=== PATIENT | female | born 1970 | race American Indian/Alaskan Native ===

== ENCOUNTER 2017-04-18 15:18 | Outpatient (CLI) | payer MEDICARE ==
[2017-04-18] MEDS ORDERED: LACTATED RINGERS 500 ML IV ONE (16:00)
[2017-04-18 16:04] LABS: Hemoglobin 11.6 gm/dl (10.1-14.3); Mean Corpuscular HGB Conc 32 % (30-34); Mean Corpuscular Hemoglobin 30 pg (28-32); Mean Corpuscular Volume 93 fl (79-97); Platelet Count 317 K/mm3 (140-440); Red Blood Count 3.87 M/mm3 (3.65-5.03); Red Cell Distribution Width 14.4 % (13.2-15.2); White Blood Count 15.3 K/mm3 (4.5-11.0)
[2017-04-18 16:15] LABS: Bilirubin,Urine NEG (Negative); Blood,Urine NEG (Negative); Ketones,Urine TR mg/dL (Negative); Leukocyte Esterase,Urine NEG (Negative); Mucus,Urine FEW /HPF; Nitrite,Urine NEG (Negative)
[2017-04-18 16:32] LABS: Alanine Aminotransferase 9 units/L (7-56); Lactate Dehydrogenase 213 units/L (91-180); Uric Acid 4.2 mg/dL (3.5-7.6)
[2017-04-18 17:43] VITALS: BP 144/81
== END 2017-04-18 18:07 | disposition home or self-care (01) ==
LOC: TRG 15:18
PROVIDERS: ATTEND Obstetrics & Gynecology
DX: O99.333 Smoking (tobacco) complicating pregnancy, third trimester (principal); O47.03 False labor before 37 completed weeks of gestation, third trimester; Z3A.36 36 weeks gestation of pregnancy
CPT/HCPCS: 36415; 59025; 81001; 82565; 83615; 84450; 84460; 84550; 85027

== ENCOUNTER 2017-04-29 22:16 | Inpatient (IN) | payer MEDICARE ==
[2017-04-30] MEDS ORDERED: PITOCin/NS 20 UNIT/1000ML DRIP 0 MILLIUNITS/0 ML BAG IV ONE (00:11)
[2017-04-30 00:21] LABS: Hemoglobin 10.5 gm/dl (10.1-14.3); Mean Corpuscular HGB Conc 32 % (30-34); Mean Corpuscular Hemoglobin 29 pg (28-32); Mean Corpuscular Volume 92 fl (79-97); Platelet Count 299 K/mm3 (140-440); Red Blood Count 3.58 M/mm3 (3.65-5.03); Red Cell Distribution Width 14.6 % (13.2-15.2); White Blood Count 16.3 K/mm3 (4.5-11.0)
[2017-04-30] MEDS ORDERED: STADOL IV PRN (04:34)
[2017-04-30] MEDS ORDERED: APRESOLINE IV PRN (04:35)
[2017-04-30] MEDS: APRESOLINE IV PRN ×2 (04:47→23:38)
[2017-04-30] MEDS ORDERED: LACTATED RINGERS 1,000 ML IV SCH ×2 (05:00→09:00)
[2017-04-30] MEDS ORDERED: BRETHINE IVP PRN (08:15)
[2017-04-30] MEDS ORDERED: BRETHINE SUB-Q PRN (08:15)
[2017-04-30] MEDS ORDERED: MINERAL OIL PO PRN (08:15)
[2017-04-30] MEDS ORDERED: XYLOCAINE 2% INFILTRATI ONE (08:15)
[2017-04-30] MEDS ORDERED: ePHEDrine SULFATE IV PRN ×2 (08:15→09:36)
[2017-04-30] MEDS: PITOCin/NS 30 UNIT/500ML 30 UNITS/500 ML BAG IV SCH ×2 (08:30→19:31)
--- NOTE | 2017-04-30 08:45 | History and Physical Report ---
History of Present Illness Date of examination: 04/30/17 Date of admission: 04/29/17 22:46 History of present illness: 46 yo first trimester U/S EDC 05/14/17 @ 38 weeks gestation presented last night to unit with c/o SROM at 2100 clear fluid. Denies VB, reports good FM. First trimester entry into care at 8 weeks gestation. course complicated by Chronic hypertension with Aldomet 250mg QD and APA comang't. Limited care in first trimester, missed 10 weeks of care. Limited anatomy scan with NL repeat U/S. Also had elevated GCT of 179, declinced 3hr GTT , sent for hgA1C, fasting and 2hr PP glucose, results not currently available at time of entry. Also treated for anemia with iron BID and Trichomonas with Rx 04/2017. She is GBS negative. Past History Past Medical History: hypertension, other (adenomyosis and leiomyoma) Past Surgical History: no surgical history [employer] History: trichomonas Family/Genetic History: diabetes, hypertension Social history: - Obstetrical History Expected Date of Delivery: 05/14/17 Actual Gestation: 38 Week(s) 0 Day(s) : 6 Para: 3 Hx # Term Pregnancies: 3 Number of Pregnancies: 0 Spontaneous Abortions: 2 Induced : 0 Number of Living Children: 3 Medications and Allergies Allergies Allergy/AdvReac Type Severity Reaction Status Date / Time No Known Allergies Allergy Verified 01/11/14 05:43 Home Medications Medication Instructions Recorded Confirmed Last Taken Type Lactulose [Cephulac] 20 gm PO BID #300 ml 01/11/14 Unknown Rx Starch 51%(Nf) [Anusol] 1 each CO QID PRN #30 supp.rect 01/11/14 Unknown Rx amLODIPine [Norvasc] 5 mg PO DAILY #30 tab 02/15/16 Unknown Rx traMADol [Ultram 50 MG tab] 50 mg PO Q6HR PRN #10 tablet 02/15/16 Unknown Rx Active Meds: Active Medications Butorphanol Tartrate (Stadol) 2 mg IV Q2H PRN PRN Reason: Labor Pain Hydralazine HCl (Apresoline) 10 mg IV Q30MIN PRN PRN Reason: Hypertension Last Admin: 04/30/17 04:47 Dose: 10 mg Lactated Ringer's (Lactated Ringers) 1,000 mls @ 125 mls/hr IV DIRECT JAIMEE Oxytocin/Sodium Chloride (Pitocin/Ns 20 Unit/1000ml Drip) 20 units in 1,000 mls @ 125 mls/hr IV DIRECT JAIMEE Oxytocin/Sodium Chloride (Pitocin/Ns 30 Unit/500ml) 30 units in 500 mls @ 4 mls /hr IV TITR JAIMEE PRN Reason: Protocol Oxytocin/Sodium Chloride (Pitocin/Ns 30 Unit/500ml) 30 units in 500 mls @ 1 mls /hr IV TITR JAIMEE; 1 MILLIUNITS/MIN PRN Reason: Protocol Methyldopa (Aldomet) 250 mg PO QDAY JAIMEE Mineral Oil (Mineral Oil) 30 ml PO QHS PRN PRN Reason: Constipation Review of Systems All systems: negative Genitourinary: normal appearance, leakage of fluid, contractions, no vaginal bleeding - Vital Signs Vital signs: Vital Signs Pulse Pulse Ox 72 99 04/29/17 22:48 04/29/17 22:48 Temp Pulse Resp BP Pulse Ox 98.3 F 97 H 16 145/87 81 L 04/30/17 08:00 04/30/17 08:31 04/30/17 08:00 04/30/17 08:31 04/30/17 07:45 - Physical Exam Lungs: Positive: Normal air movement Abdomen: Positive: normal appearance Anus/Rectum: Positive: normal perianal skin - Obstetrical FHR: category 1 Uterine Contraction Monitor Mode: External Cervical Dilatation: 3 Cervical Effacement Percentage: 50 station: -3 Uterine Contraction Pattern: Irregular Uterine Tone Measurement Phase: Resting Uterine Contraction Intensity: Mild Results Result Diagrams: 04/30/17 09:27 04/30/17 14:16 Abnormal lab results 04/29/17 Range/Units 00:00 WBC 16.3 H (4.5-11.0) K/mm3 RBC 3.58 L (3.65-5.03) M/mm3 All other labs normal. Assessment and Plan A: IUP at 38.0 weeks Chronic Hypertension Spontaneous Rupture of Membranes Advanced maternal age Anemia Glucose Intolerance Uterine Fibroids EFW: 7.5lbs P: advised of patient Active hina't Pitocin Limited vaginal exams Monitor BP
[2017-04-30] MEDS ORDERED: PITOCin/NS 30 UNIT/500ML 30 UNITS/500 ML BAG IV SCH (09:00)
[2017-04-30] MEDS ORDERED: PITOCin/NS 20 UNIT/1000ML DRIP 20 UNITS/1,000 ML BAG IV SCH (09:00)
[2017-04-30] MEDS ORDERED: fentaNYL-BUPIV 2 MCG/ML-0.125% 200 MCG/100 ML BAG EPIDURAL ONE (09:32)
[2017-04-30] MEDS ORDERED: NARCAN 2 MG/2 ML IV PRN (09:36)
--- NOTE | 2017-04-30 09:36 | Anesthesia Consultation ---
Anesthesia Consult and Med Hx Date of service: 04/30/17 - Airway Anesthetic Teeth Evaluation: Good ROM Head & Neck: Adequate Mental/Hyoid Distance: Adequate Mallampati Class: Class II Intubation Access Assessment: Probably Good - Pre-Operative Health Status ASA Pre-Surgery Classification: ASA2 Proposed Anesthetic Plan: Epidural, Spinal - Pulmonary Hx Asthma: No COPD: No Hx Pneumonia: No - Cardiovascular System Hx Hypertension: Yes - Central Nervous System Hx Seizures: No Hx Psychiatric Problems: No - Endocrine Hx Renal Disease: No Hx End Stage Renal Disease: No Hx Hypothyroidism: No Hx Hyperthyroidism: No - Hematic Hx Anemia: No Hx Sickle Cell Disease: No - Other Systems Hx Alcohol Use: No
[2017-04-30 09:44] LABS: Hematocrit 34.1 % (30.3-42.9); Hemoglobin 11.2 gm/dl (10.1-14.3)
[2017-04-30] MEDS ORDERED: ALDOMET PO SCH (10:00)
[2017-04-30] MEDS: fentaNYL-BUPIV 2 MCG/ML-0.125% 200 MCG/100 ML BAG EPIDURAL SCH ×2 (10:10→18:56)
--- NOTE | 2017-04-30 13:09 | Progress Note ---
Assessment and Plan A: IUP at 38 weeks SROM-clear PROM @ 1500 Epidural Insitu P: Active Govind't with Pitocin (currently at 24mu) Antibiotics @ 1500 Subjective - Subjective Date of service: 04/30/17 Interval history: 46 yo first trimester U/S EDC 05/14/17 @ 38 weeks gestation presented last night to unit with c/o SROM at 2100 clear fluid. Denies VB, reports good FM. First trimester entry into care at 8 weeks gestation. course complicated by Chronic hypertension with Aldomet 250mg QD and APA comang't. Limited care in first trimester, missed 10 weeks of care. Limited anatomy scan with NL repeat U/S. Also had elevated GCT of 179, declinced 3hr GTT , sent for hgA1C, fasting and 2hr PP glucose, results not currently available at time of entry. Also treated for anemia with iron BID and Trichomonas with Rx 04/2017. She is GBS negative. Patient reports: new complaints, loss of fluid, movement normal, contractions, no vaginal bleeding Objective - Vital Signs Vital Signs: Vital Signs - 12hr 04/30/17 04/30/17 04/30/17 01:06 01:11 01:16 Temperature Pulse Rate 101 H 104 H 97 H Respiratory Rate Blood Pressure O2 Sat by Pulse 97 97 97 Oximetry 04/30/17 04/30/17 04/30/17 01:21 01:26 01:31 Temperature Pulse Rate 101 H 105 H 105 H Respiratory Rate Blood Pressure O2 Sat by Pulse 97 96 97 Oximetry 04/30/17 04/30/17 04/30/17 01:36 01:41 01:46 Temperature Pulse Rate 96 H 85 88 Respiratory Rate Blood Pressure O2 Sat by Pulse 95 96 97 Oximetry 04/30/17 04/30/17 04/30/17 01:51 01:56 02:01 Temperature Pulse Rate 87 93 H 87 Respiratory Rate Blood Pressure O2 Sat by Pulse 97 96 97 Oximetry 04/30/17 04/30/17 04/30/17 02:06 02:11 02:16 Temperature Pulse Rate 89 86 84 Respiratory Rate Blood Pressure O2 Sat by Pulse 97 97 96 Oximetry 04/30/17 04/30/17 04/30/17 02:21 02:26 02:31 Temperature Pulse Rate 87 83 84 Respiratory Rate Blood Pressure O2 Sat by Pulse 96 95 96 Oximetry 04/30/17 04/30/17 04/30/17 02:36 02:41 02:46 Temperature Pulse Rate 85 85 92 H Respiratory Rate Blood Pressure O2 Sat by Pulse 96 97 97 Oximetry 04/30/17 04/30/17 04/30/17 02:51 02:56 03:01 Temperature Pulse Rate 87 81 75 Respiratory Rate Blood Pressure O2 Sat by Pulse 96 98 98 Oximetry 04/30/17 04/30/17 04/30/17 03:06 03:11 03:16 Temperature Pulse Rate 82 81 83 Respiratory Rate Blood Pressure O2 Sat by Pulse 97 98 98 Oximetry 04/30/17 04/30/17 04/30/17 03:21 03:26 03:31 Temperature Pulse Rate 91 H 87 81 Respiratory Rate Blood Pressure O2 Sat by Pulse 97 97 97 Oximetry 04/30/17 04/30/17 04/30/17 03:36 03:38 03:41 Temperature Pulse Rate 84 78 85 Respiratory Rate Blood Pressure 166/81 O2 Sat by Pulse 97 91 97 Oximetry 04/30/17 04/30/17 04/30/17 03:46 03:51 03:56 Temperature Pulse Rate 79 85 79 Respiratory Rate Blood Pressure O2 Sat by Pulse 96 96 97 Oximetry 04/30/17 04/30/17 04/30/17 04:01 04:06 04:11 Temperature Pulse Rate 86 80 85 Respiratory Rate Blood Pressure O2 Sat by Pulse 97 97 97 Oximetry 04/30/17 04/30/17 04/30/17 04:16 04:21 04:26 Temperature Pulse Rate 84 87 84 Respiratory Rate Blood Pressure O2 Sat by Pulse 96 97 98 Oximetry 04/30/17 04/30/17 04/30/17 04:31 04:36 04:38 Temperature Pulse Rate 85 84 81 Respiratory Rate Blood Pressure 182/83 O2 Sat by Pulse 96 97 92 Oximetry 04/30/17 04/30/17 04/30/17 04:41 04:46 04:47 Temperature Pulse Rate 82 89 85 Respiratory Rate Blood Pressure 182/83 O2 Sat by Pulse 97 97 Oximetry 04/30/17 04/30/17 04/30/17 04:51 04:56 05:01 Temperature Pulse Rate 90 87 91 H Respiratory Rate Blood Pressure O2 Sat by Pulse 97 97 97 Oximetry 04/30/17 04/30/17 04/30/17 05:06 05:11 05:16 Temperature Pulse Rate 92 H 90 89 Respiratory Rate Blood Pressure O2 Sat by Pulse 96 97 97 Oximetry 04/30/17 04/30/17 04/30/17 05:18 05:21 05:26 Temperature Pulse Rate 84 86 80 Respiratory Rate Blood Pressure 140/71 O2 Sat by Pulse 92 97 97 Oximetry 04/30/17 04/30/17 04/30/17 05:31 05:36 05:41 Temperature Pulse Rate 91 H 88 82 Respiratory Rate Blood Pressure O2 Sat by Pulse 97 97 97 Oximetry 04/30/17 04/30/17 04/30/17 05:46 05:49 05:51 Temperature Pulse Rate 86 82 81 Respiratory Rate Blood Pressure 139/68 O2 Sat by Pulse 97 94 97 Oximetry 04/30/17 04/30/17 04/30/17 05:56 06:01 06:06 Temperature Pulse Rate 82 88 87 Respiratory Rate Blood Pressure O2 Sat by Pulse 97 98 97 Oximetry 04/30/17 04/30/17 04/30/17 06:11 06:16 06:18 Temperature Pulse Rate 82 81 85 Respiratory Rate Blood Pressure 140/69 O2 Sat by Pulse 97 98 Oximetry 04/30/17 04/30/17 04/30/17 06:21 06:26 06:31 Temperature Pulse Rate 93 H 83 89 Respiratory Rate Blood Pressure O2 Sat by Pulse 97 97 97 Oximetry 04/30/17 04/30/17 04/30/17 06:36 06:41 06:46 Temperature Pulse Rate 92 H 91 H 90 Respiratory Rate Blood Pressure O2 Sat by Pulse 97 97 97 Oximetry 04/30/17 04/30/17 04/30/17 06:48 06:51 06:56 Temperature Pulse Rate 103 H 100 H 92 H Respiratory Rate Blood Pressure 126/75 O2 Sat by Pulse 98 97 Oximetry 04/30/17 04/30/17 04/30/17 07:01 07:06 07:11 Temperature Pulse Rate 85 94 H 95 H Respiratory Rate Blood Pressure O2 Sat by Pulse 97 97 97 Oximetry 04/30/17 04/30/17 04/30/17 07:16 07:18 07:21 Temperature Pulse Rate 95 H 95 H 89 Respiratory Rate Blood Pressure 138/70 O2 Sat by Pulse 97 93 97 Oximetry 04/30/17 04/30/17 04/30/17 07:26 07:31 07:36 Temperature Pulse Rate 99 H 97 H 95 H Respiratory Rate Blood Pressure O2 Sat by Pulse 98 97 97 Oximetry 04/30/17 04/30/17 04/30/17 07:41 07:44 07:45 Temperature Pulse Rate 91 H 89 85 Respiratory Rate Blood Pressure 138/79 O2 Sat by Pulse 97 81 L Oximetry 04/30/17 04/30/17 04/30/17 08:00 08:31 08:50 Temperature 98.3 F Pulse Rate 89 97 H 88 Respiratory 16 Rate Blood Pressure 138/78 145/87 160/76 O2 Sat by Pulse Oximetry 04/30/17 04/30/17 04/30/17 09:41 09:46 09:48 Temperature Pulse Rate 98 H 98 H 92 H Respiratory Rate Blood Pressure 197/88 196/84 O2 Sat by Pulse 99 99 Oximetry 04/30/17 04/30/17 04/30/17 09:50 09:51 09:52 Temperature Pulse Rate 88 95 H 93 H Respiratory Rate Blood Pressure 181/81 183/83 O2 Sat by Pulse 99 Oximetry 04/30/17 04/30/17 04/30/17 09:54 09:56 09:58 Temperature Pulse Rate 94 H 105 H 97 H Respiratory Rate Blood Pressure 171/93 145/69 149/75 O2 Sat by Pulse 99 Oximetry 04/30/17 04/30/17 04/30/17 10:00 10:01 10:02 Temperature Pulse Rate 109 H 103 H 97 H Respiratory Rate Blood Pressure 145/74 155/78 O2 Sat by Pulse 99 Oximetry 04/30/17 04/30/17 04/30/17 10:04 10:06 10:11 Temperature Pulse Rate 102 H 99 H 94 H Respiratory Rate Blood Pressure 152/74 O2 Sat by Pulse 98 98 Oximetry 04/30/17 04/30/17 04/30/17 10:16 10:21 10:22 Temperature Pulse Rate 92 H 92 H 90 Respiratory Rate Blood Pressure 160/79 O2 Sat by Pulse 98 98 Oximetry 04/30/17 04/30/17 04/30/17 10:26 10:31 10:33 Temperature Pulse Rate 87 89 97 H Respiratory Rate Blood Pressure 155/85 O2 Sat by Pulse 98 98 Oximetry 04/30/17 04/30/17 04/30/17 10:36 10:41 10:46 Temperature Pulse Rate 92 H 91 H 94 H Respiratory Rate Blood Pressure 161/81 O2 Sat by Pulse 98 98 98 Oximetry 04/30/17 04/30/17 04/30/17 10:51 10:56 11:01 Temperature Pulse Rate 92 H 95 H 105 H Respiratory Rate Blood Pressure 140/73 O2 Sat by Pulse 98 98 99 Oximetry 04/30/17 04/30/17 04/30/17 11:06 11:11 11:16 Temperature Pulse Rate 96 H 99 H 94 H Respiratory Rate Blood Pressure 146/74 O2 Sat by Pulse 99 99 99 Oximetry 04/30/17 04/30/17 04/30/17 11:21 11:26 11:31 Temperature Pulse Rate 90 89 94 H Respiratory Rate Blood Pressure 142/75 O2 Sat by Pulse 98 99 98 Oximetry 04/30/17 04/30/17 04/30/17 11:36 11:37 11:41 Temperature Pulse Rate 84 85 82 Respiratory Rate Blood Pressure 137/75 O2 Sat by Pulse 98 98 Oximetry 04/30/17 04/30/17 04/30/17 11:46 11:50 11:51 Temperature Pulse Rate 87 87 92 H Respiratory Rate Blood Pressure 136/74 O2 Sat by Pulse 98 98 Oximetry 04/30/17 04/30/17 04/30/17 11:56 12:01 12:05 Temperature Pulse Rate 93 H 87 93 H Respiratory Rate Blood Pressure 135/78 O2 Sat by Pulse 98 98 Oximetry 04/30/17 04/30/17 04/30/17 12:06 12:11 12:16 Temperature Pulse Rate 88 95 H 96 H Respiratory Rate Blood Pressure O2 Sat by Pulse 98 98 98 Oximetry 04/30/17 04/30/17 04/30/17 12:21 12:22 12:26 Temperature Pulse Rate 96 H 103 H 96 H Respiratory Rate Blood Pressure 133/85 O2 Sat by Pulse 98 99 Oximetry 04/30/17 04/30/17 04/30/17 12:31 12:35 12:37 Temperature 98.5 F Pulse Rate 107 H 98 H 107 H Respiratory 16 Rate Blood Pressure 137/73 133/85 O2 Sat by Pulse 99 99 Oximetry 04/30/17 04/30/17 04/30/17 12:42 12:46 12:51 Temperature Pulse Rate 100 H 104 H 88 Respiratory Rate Blood Pressure 171/90 O2 Sat by Pulse 99 98 99 Oximetry 04/30/17 04/30/17 12:56 13:01 Temperature Pulse Rate 92 H 87 Respiratory Rate Blood Pressure O2 Sat by Pulse 99 99 Oximetry - Exam Abdomen: Present: normal appearance FHR: category 1 Uterine Contraction Monitor Mode: Palpation Cervical Dilatation: 3 Cervical Effacement Percentage: 50 station: -3 Uterine Contraction Frequency (min): 2-3 Uterine Contraction Duration: 60-90 Uterine Contraction Pattern: Regular Uterine Tone Measurement Phase: Resting Uterine Contraction Intensity: Moderate - Labs Labs: Abnormal Labs 04/29/17 00:00 WBC 16.3 H RBC 3.58 L Laboratory Results - last 24 hr 04/29/17 04/29/17 04/30/17 00:00 00:00 09:27 WBC 16.3 H RBC 3.58 L Hgb 10.5 11.2 Hct 33.0 34.1 MCV 92 MCH 29 MCHC 32 RDW 14.6 Plt Count 299 RPR Blood Type A POSITIVE Antibody Screen Negative 04/30/17 09:27 WBC RBC Hgb Hct MCV MCH MCHC RDW Plt Count RPR Nonreactive Blood Type Antibody Screen
[2017-04-30] MEDS ORDERED: NORMODYNE IV ONE ×2 (14:26→19:14)
[2017-04-30] MEDS ORDERED: POLYCILLIN/NS 2 GM/100 ML 2 GM/100 ML BAG IV ONE (15:00)
[2017-04-30 15:08] LABS: Alanine Aminotransferase 8 units/L (7-56); Lactate Dehydrogenase 194 units/L (91-180); Uric Acid 4.2 mg/dL (3.5-7.6)
--- NOTE | 2017-04-30 16:43 | Progress Note ---
Assessment and Plan A:IUP at term Prolonged SROM CHTN Active Labor AMA Epidural Insitu P: IUPC Active hina't Pitocin Primary C/S with adequate MVU and no cervical change Subjective - Subjective Date of service: 04/30/17 Interval history: 46 yo first trimester U/S EDC 05/14/17 @ 38 weeks gestation presented last night to unit with c/o SROM at 2100 clear fluid. Denies VB, reports good FM. First trimester entry into care at 8 weeks gestation. course complicated by Chronic hypertension with Aldomet 250mg QD and APA comang't. Limited care in first trimester, missed 10 weeks of care. Limited anatomy scan with NL repeat U/S. Also had elevated GCT of 179, declinced 3hr GTT , sent for hgA1C, fasting and 2hr PP glucose, results not currently available at time of entry. Also treated for anemia with iron BID and Trichomonas with Rx 04/2017. She is GBS negative. Patient reports: new complaints, loss of fluid, movement normal, contractions, no vaginal bleeding Objective - Vital Signs Vital Signs: Vital Signs - 12hr 04/30/17 04/30/17 04/30/17 04:41 04:46 04:47 Temperature Pulse Rate 82 89 85 Respiratory Rate Blood Pressure 182/83 O2 Sat by Pulse 97 97 Oximetry 04/30/17 04/30/17 04/30/17 04:51 04:56 05:01 Temperature Pulse Rate 90 87 91 H Respiratory Rate Blood Pressure O2 Sat by Pulse 97 97 97 Oximetry 04/30/17 04/30/17 04/30/17 05:06 05:11 05:16 Temperature Pulse Rate 92 H 90 89 Respiratory Rate Blood Pressure O2 Sat by Pulse 96 97 97 Oximetry 04/30/17 04/30/17 04/30/17 05:18 05:21 05:26 Temperature Pulse Rate 84 86 80 Respiratory Rate Blood Pressure 140/71 O2 Sat by Pulse 92 97 97 Oximetry 04/30/17 04/30/17 04/30/17 05:31 05:36 05:41 Temperature Pulse Rate 91 H 88 82 Respiratory Rate Blood Pressure O2 Sat by Pulse 97 97 97 Oximetry 04/30/17 04/30/17 04/30/17 05:46 05:49 05:51 Temperature Pulse Rate 86 82 81 Respiratory Rate Blood Pressure 139/68 O2 Sat by Pulse 97 94 97 Oximetry 04/30/17 04/30/17 04/30/17 05:56 06:01 06:06 Temperature Pulse Rate 82 88 87 Respiratory Rate Blood Pressure O2 Sat by Pulse 97 98 97 Oximetry 04/30/17 04/30/17 04/30/17 06:11 06:16 06:18 Temperature Pulse Rate 82 81 85 Respiratory Rate Blood Pressure 140/69 O2 Sat by Pulse 97 98 Oximetry 04/30/17 04/30/17 04/30/17 06:21 06:26 06:31 Temperature Pulse Rate 93 H 83 89 Respiratory Rate Blood Pressure O2 Sat by Pulse 97 97 97 Oximetry 04/30/17 04/30/17 04/30/17 06:36 06:41 06:46 Temperature Pulse Rate 92 H 91 H 90 Respiratory Rate Blood Pressure O2 Sat by Pulse 97 97 97 Oximetry 04/30/17 04/30/17 04/30/17 06:48 06:51 06:56 Temperature Pulse Rate 103 H 100 H 92 H Respiratory Rate Blood Pressure 126/75 O2 Sat by Pulse 98 97 Oximetry 04/30/17 04/30/17 04/30/17 07:01 07:06 07:11 Temperature Pulse Rate 85 94 H 95 H Respiratory Rate Blood Pressure O2 Sat by Pulse 97 97 97 Oximetry 04/30/17 04/30/17 04/30/17 07:16 07:18 07:21 Temperature Pulse Rate 95 H 95 H 89 Respiratory Rate Blood Pressure 138/70 O2 Sat by Pulse 97 93 97 Oximetry 04/30/17 04/30/17 04/30/17 07:26 07:31 07:36 Temperature Pulse Rate 99 H 97 H 95 H Respiratory Rate Blood Pressure O2 Sat by Pulse 98 97 97 Oximetry 04/30/17 04/30/17 04/30/17 07:41 07:44 07:45 Temperature Pulse Rate 91 H 89 85 Respiratory Rate Blood Pressure 138/79 O2 Sat by Pulse 97 81 L Oximetry 04/30/17 04/30/17 04/30/17 08:00 08:31 08:50 Temperature 98.3 F Pulse Rate 89 97 H 88 Respiratory 16 Rate Blood Pressure 138/78 145/87 160/76 O2 Sat by Pulse Oximetry 04/30/17 04/30/17 04/30/17 09:41 09:46 09:48 Temperature Pulse Rate 98 H 98 H 92 H Respiratory Rate Blood Pressure 197/88 196/84 O2 Sat by Pulse 99 99 Oximetry 04/30/17 04/30/17 04/30/17 09:50 09:51 09:52 Temperature Pulse Rate 88 95 H 93 H Respiratory Rate Blood Pressure 181/81 183/83 O2 Sat by Pulse 99 Oximetry 04/30/17 04/30/17 04/30/17 09:54 09:56 09:58 Temperature Pulse Rate 94 H 105 H 97 H Respiratory Rate Blood Pressure 171/93 145/69 149/75 O2 Sat by Pulse 99 Oximetry 04/30/17 04/30/17 04/30/17 10:00 10:01 10:02 Temperature Pulse Rate 109 H 103 H 97 H Respiratory Rate Blood Pressure 145/74 155/78 O2 Sat by Pulse 99 Oximetry 04/30/17 04/30/17 04/30/17 10:04 10:06 10:11 Temperature Pulse Rate 102 H 99 H 94 H Respiratory Rate Blood Pressure 152/74 O2 Sat by Pulse 98 98 Oximetry 04/30/17 04/30/17 04/30/17 10:16 10:21 10:22 Temperature Pulse Rate 92 H 92 H 90 Respiratory Rate Blood Pressure 160/79 O2 Sat by Pulse 98 98 Oximetry 04/30/17 04/30/17 04/30/17 10:26 10:31 10:33 Temperature Pulse Rate 87 89 97 H Respiratory Rate Blood Pressure 155/85 O2 Sat by Pulse 98 98 Oximetry 04/30/17 04/30/17 04/30/17 10:36 10:41 10:46 Temperature Pulse Rate 92 H 91 H 94 H Respiratory Rate Blood Pressure 161/81 O2 Sat by Pulse 98 98 98 Oximetry 04/30/17 04/30/17 04/30/17 10:51 10:56 11:01 Temperature Pulse Rate 92 H 95 H 105 H Respiratory Rate Blood Pressure 140/73 O2 Sat by Pulse 98 98 99 Oximetry 04/30/17 04/30/17 04/30/17 11:06 11:11 11:16 Temperature Pulse Rate 96 H 99 H 94 H Respiratory Rate Blood Pressure 146/74 O2 Sat by Pulse 99 99 99 Oximetry 04/30/17 04/30/17 04/30/17 11:21 11:26 11:31 Temperature Pulse Rate 90 89 94 H Respiratory Rate Blood Pressure 142/75 O2 Sat by Pulse 98 99 98 Oximetry 04/30/17 04/30/17 04/30/17 11:36 11:37 11:41 Temperature Pulse Rate 84 85 82 Respiratory Rate Blood Pressure 137/75 O2 Sat by Pulse 98 98 Oximetry 04/30/17 04/30/17 04/30/17 11:46 11:50 11:51 Temperature Pulse Rate 87 87 92 H Respiratory Rate Blood Pressure 136/74 O2 Sat by Pulse 98 98 Oximetry 04/30/17 04/30/17 04/30/17 11:56 12:01 12:05 Temperature Pulse Rate 93 H 87 93 H Respiratory Rate Blood Pressure 135/78 O2 Sat by Pulse 98 98 Oximetry 04/30/17 04/30/17 04/30/17 12:06 12:11 12:16 Temperature Pulse Rate 88 95 H 96 H Respiratory Rate Blood Pressure O2 Sat by Pulse 98 98 98 Oximetry 04/30/17 04/30/17 04/30/17 12:21 12:22 12:26 Temperature Pulse Rate 96 H 103 H 96 H Respiratory Rate Blood Pressure 133/85 O2 Sat by Pulse 98 99 Oximetry 04/30/17 04/30/17 04/30/17 12:31 12:35 12:37 Temperature 98.5 F Pulse Rate 107 H 98 H 107 H Respiratory 16 Rate Blood Pressure 137/73 133/85 O2 Sat by Pulse 99 99 Oximetry 04/30/17 04/30/17 04/30/17 12:42 12:46 12:51 Temperature Pulse Rate 100 H 104 H 88 Respiratory Rate Blood Pressure 171/90 O2 Sat by Pulse 99 98 99 Oximetry 04/30/17 04/30/17 04/30/17 12:56 13:01 13:06 Temperature Pulse Rate 92 H 87 89 Respiratory Rate Blood Pressure O2 Sat by Pulse 99 99 98 Oximetry 04/30/17 04/30/17 04/30/17 13:07 13:11 13:16 Temperature Pulse Rate 88 86 89 Respiratory Rate Blood Pressure 172/89 O2 Sat by Pulse 98 97 Oximetry 04/30/17 04/30/17 04/30/17 13:21 13:27 13:32 Temperature Pulse Rate 84 85 86 Respiratory Rate Blood Pressure 159/81 O2 Sat by Pulse 97 97 97 Oximetry 08/21/17 08/21/17 08/21/17 13:36 13:37 13:41 Temperature Pulse Rate 82 86 82 Respiratory Rate Blood Pressure 152/75 O2 Sat by Pulse 97 97 Oximetry 04/30/17 04/30/17 04/30/17 13:47 13:50 13:51 Temperature Pulse Rate 89 95 H 94 H Respiratory Rate Blood Pressure 161/81 O2 Sat by Pulse 96 97 Oximetry 04/30/17 04/30/17 04/30/17 13:57 14:02 14:05 Temperature Pulse Rate 88 88 94 H Respiratory Rate Blood Pressure 149/86 O2 Sat by Pulse 97 97 Oximetry 04/30/17 04/30/17 04/30/17 14:06 14:12 14:17 Temperature Pulse Rate 93 H 77 98 H Respiratory Rate Blood Pressure O2 Sat by Pulse 98 97 97 Oximetry 04/30/17 04/30/17 04/30/17 14:22 14:27 14:31 Temperature Pulse Rate 92 H 86 88 Respiratory Rate Blood Pressure 180/87 O2 Sat by Pulse 99 98 98 Oximetry 04/30/17 04/30/17 04/30/17 14:36 14:37 14:41 Temperature Pulse Rate 90 91 H 87 Respiratory Rate Blood Pressure 157/75 O2 Sat by Pulse 97 97 Oximetry 04/30/17 04/30/17 04/30/17 14:46 14:50 14:51 Temperature Pulse Rate 91 H 88 87 Respiratory Rate Blood Pressure 157/75 169/81 O2 Sat by Pulse 97 97 Oximetry 04/30/17 04/30/17 04/30/17 14:57 15:02 15:06 Temperature Pulse Rate 86 87 87 Respiratory Rate Blood Pressure 159/82 O2 Sat by Pulse 98 98 Oximetry 04/30/17 04/30/17 04/30/17 15:22 15:36 15:51 Temperature Pulse Rate 78 89 85 Respiratory Rate Blood Pressure 156/89 147/98 185/82 O2 Sat by Pulse Oximetry 04/30/17 04/30/17 04/30/17 16:06 16:25 16:26 Temperature Pulse Rate 78 82 78 Respiratory Rate Blood Pressure 155/69 163/78 O2 Sat by Pulse 95 Oximetry 04/30/17 04/30/17 16:30 16:35 Temperature Pulse Rate 88 85 Respiratory Rate Blood Pressure O2 Sat by Pulse 96 97 Oximetry - Exam Breasts: deferred Abdomen: Present: normal appearance Uterus: Present: normal FHR: category 1 Uterine Contraction Monitor Mode: External Cervical Dilatation: 4.5 Cervical Effacement Percentage: 80 station: -3 Uterine Contraction Frequency (min): 2 Uterine Contraction Duration: 2 Uterine Contraction Pattern: Regular Uterine Tone Measurement Phase: Resting Uterine Contraction Intensity: Strong/Firm - Labs Labs: Abnormal Labs 04/29/17 04/30/17 00:00 14:16 WBC 16.3 H RBC 3.58 L Creatinine 0.5 L Lactate Dehydrogenase 194 H Laboratory Results - last 24 hr 04/29/17 04/29/17 04/30/17 00:00 00:00 09:27 WBC 16.3 H RBC 3.58 L Hgb 10.5 11.2 Hct 33.0 34.1 MCV 92 MCH 29 MCHC 32 RDW 14.6 Plt Count 299 Creatinine Estimated GFR Uric Acid AST ALT Lactate Dehydrogenase RPR Blood Type A POSITIVE Antibody Screen Negative 04/30/17 04/30/17 09:27 14:16 WBC RBC Hgb Hct MCV MCH MCHC RDW Plt Count Creatinine 0.5 L Estimated GFR > 60 Uric Acid 4.2 AST 13 ALT 8 Lactate Dehydrogenase 194 H RPR Nonreactive Blood Type Antibody Screen
[2017-04-30 16:50] LABS: Bilirubin,Urine NEG (Negative); Blood,Urine NEG (Negative); Ketones,Urine 20 mg/dL (Negative); Leukocyte Esterase,Urine SM (Negative); Mucus,Urine FEW /HPF; Nitrite,Urine NEG (Negative); Protein,Urine <15 mg/dL mg/dL (Negative)
[2017-04-30] MEDS ORDERED: XYLOCAINE MPF 2% ONE (18:30)
[2017-04-30] MEDS ORDERED: POLYCILLIN/NS 1 GM/50 ML 1 GM/50 ML BAG IV SCH (19:00)
[2017-04-30] MEDS ORDERED: ZOFRAN ONE (19:17)
[2017-04-30] MEDS ORDERED: ZOFRAN IV ONE (19:19)
--- NOTE | 2017-04-30 19:23 | Event Note ---
Date: 04/30/17 Pt redosed for epidural. + bloody show. Category I tracing. Cervix /-2. Continue routine intrapartum care.
[2017-04-30] MEDS ORDERED: SUBLIMAZE IV ONE ×2 (20:32→20:46)
[2017-04-30] MEDS ORDERED: SUBLIMAZE ONE (20:32)
[2017-04-30] MEDS ORDERED: BICITRA PO ONE (22:02)
[2017-04-30] MEDS ORDERED: REGLAN IV ONE (22:05)
[2017-04-30] MEDS ORDERED: ANCEF/STERILE WATER 2 GM/20 ML 2 GM/20 ML SYRINGE IV ONE (22:08)
[2017-04-30] MEDS ORDERED: PEPCID IV ONE (22:08)
--- NOTE | 2017-04-30 23:17 | Procedure Note ---
OB Delivery Note - Delivery Date of Delivery: 05/01/17 Surgeon: ELIZA VINCENT Estimated blood loss: other (1600 mL) - Section Preop diagnosis: arrest of dilation Postop diagnosis: same section procedure: section, primary low transverse, bilateral tubal ligation Disposition: PACU Complications: intra-op hemorrhage, uterine atony Narrative: Please see operative note. - A at 1 minute: 8 at 5 minutes: 9 Infant Gender: Female (2974g (6lb 9oz) @ 0042 am 05/01/17)
--- NOTE | 2017-04-30 23:18 | Operative Report ---
Operative Report Operative Report: Date of procedure: 05/01/17 Preoperative diagnosis: 1) IUP at 38w0d 2) Arrest of Dilation 3) Prolonged ROM 4 ) AMA 5) Fibroid Uterus 6) Chronic Hypertension 7) Undesired Fertility Postoperative diagnosis: Same 8) Uterine Atony Procedure: 1) Primary low transverse section 2) Bilateral tubal ligation via Indio Method Surgeon: Kay Banegas M.D. Anesthesia: Epidural Findings: 1) Viable female , Apgars 8 and 9, weight 2974g, (6 lb 9oz) in occiput posterior position 2) Normal-appearing uterus ovaries. Filmy adhesions surrounding the fallopian tubes bilaterally. Estimated blood loss: 1600 mL IV fluids: 3000 mL Urine output: 180, clear at the end of the procedure Drains: Vázquez to gravity Specimens: Placenta, bilateral tubal segments to pathology Complications:Uterine atony, intraoperative hemorrhage. Pt given additional 20 units of pitocin in IVFs and typed and crossed for two units of PRBCs. She was given cytotec 800 mcg per rectum at the end of the procedure as well Disposition: Stable to PACU Indication for procedure: Pt is a 46 year old -Irish female at 38wks who ruptured at 9 pm on 04/29/17. Her labor was augmented with pitocin, but she arrested at 6-7 cm despite adequate contractions. The decision was made to proceed with delivery. Operation in detail: After the risks, benefits, alternatives and complications were explained to the patient she gave informed consent for the procedure. She was subsequently taken to the operating room where epidural anesthesia was noted to be adequate. She was subsequently placed in the dorsal supine position with leftward tilt and prepped and draped in a normal sterile fashion. heart tones were noted to be in the 145s prior to incision. A timeout was performed. A Pfannenstiel skin incision was made with the knife and carried down to the layer of the fascia with the Bovie. The fascia was incised in the midline and the fascial incision was extended bilaterally with the Bovie. Attention was then turned to the superior aspect of the incision which was grasped with two Kochers, tented up, and dissected off the rectus muscles. Attention was then turned to the inferior aspect of the incision which was grasped with two Kochers , tented up and dissected off the rectus muscles. The rectus muscles were then in the midline. The peritoneum was then entered bluntly. The peritoneal incision was extended with good visualization of the bladder. The peritoneal incision was then stretched. An Krunal self-retaining retractor was placed for visualization. The bladder blade was placed. The vesicouterine peritoneum was grasped with smooth pickups and incised with Metzenbaum scissors. Metzenbaum scissors were used to extend the incision bilaterally. The bladder flap was then created digitally and the bladder blade was replaced. A transverse incision was made in the lower uterine segment with a knife and extended bilaterally with the bandage scissors. The head was delivered without difficulty followed by shoulders and body. was bulb suctioned at delivery. The cord was clamped and cut and the was handed to NICU staff in attendance. Cord blood was collected. The placenta was then delivered manually. The uterus was then cleared of all clots and debris. Heavy uterine bleeding was then noted. 20 units of pitocin were added to the IV fluids. Uterine tone improved. The hysterotomy was then reapproximated with 0 Vicryl in a running locked fashion. A second layer of the same suture was used in imbricating fashion. The hysterotomy was inspected and hemostasis was noted. Attention was then turned to the tubal ligation. The right tube was identified and followed to to the fimbriae. The tube was then grasped with a Jaymie and ligated via the Indio method. Attention was then turned to the left tube which in a similar fashion was followed down to the fimbriae, grasped with a Kellogg, and ligated in via the Indio method. Hemostasis was noted. Both cut ends of the fallopian tubes were cauterized with the Bovie and covered with Surgicel. The hysterotomy was inspected and hemostasis was noted. The uterus was then returned to the peritoneal cavity. All instruments were removed from the abdominal cavity. The gutters were irrigated and cleared of all clots and debris. The hysterotomy was again inspected and noted to be hemostatic. Surgicel was then placed over the hysterotomy. The Krunal self-retaining retractor was removed. The gutters were irrigated and cleared of all clots and debris. The hysterotomy was again inspected and noted to be hemostatic. Surgicel was placed over the hysterotomy. The rectus muscles were then reapproximated with 2-0 Vicryl in an interrupted fashion. The fascia was reapproximated with 0 Vicryl in a running fashion. The subcutaneous tissue was reapproximated with 3-0 Vicryl. The skin was reapproximated with davy. The incision was then covered with steri strips and a pressure dressing. The procedure was then ended. The patient tolerated the procedure well and was taken to the PACU in stable condition. All instrument, lap, and needle counts were correct 3. The patient received cytotec 800 mcg per rectum at the end of the procedure. She will have a CBC and coags drawn here in the PACU, as well as begin transfusion of 2 units of PRBCs.
[2017-05-01] MEDS ORDERED: XYLOCAINE MPF 2% ONE ×4 (00:35→01:35)
[2017-05-01] MEDS ORDERED: ZOFRAN ONE (00:38)
[2017-05-01] MEDS ORDERED: MORPHINE ONE (00:40)
[2017-05-01] MEDS ORDERED: CYTOTEC ONE ×2 (00:52→00:53)
[2017-05-01] MEDS ORDERED: HEMABATE IM ONE (00:53)
[2017-05-01] MEDS ORDERED: SUBLIMAZE ONE ×2 (01:28→01:36)
[2017-05-01] MEDS ORDERED: NACL 0.9% 500 ML 500 ML IV ONE (02:01)
[2017-05-01] MEDS ORDERED: VERSED ONE (02:11)
[2017-05-01] MEDS ORDERED: NARCAN 0.4 MG/1 ML IV PRN ×2 (02:26→05:20)
[2017-05-01] MEDS ORDERED: BENADRYL IV PRN (02:26)
[2017-05-01] MEDS ORDERED: DILAUDID IV PRN (02:26)
--- NOTE | 2017-05-01 02:26 | Post Anesthesia Evaluation ---
- Post Anesthesia Evaluation Patient Participated: Yes Airway Patent: Yes Stable Respiratory Function: Yes Temp > 96.8F: Yes Pain Manageable: Yes Adequeate Hydration: Yes Anesthesia Complications: No Block Receding Appropriately: Not Applicable
[2017-05-01 03:21] LABS: Hematocrit 30.5 % (30.3-42.9); Hemoglobin 9.8 gm/dl (10.1-14.3); Mean Corpuscular HGB Conc 32 % (30-34); Mean Corpuscular Hemoglobin 30 pg (28-32); Mean Corpuscular Volume 93 fl (79-97); Platelet Count 199 K/mm3 (140-440); Red Blood Count 3.28 M/mm3 (3.65-5.03); Red Cell Distribution Width 14.8 % (13.2-15.2); White Blood Count 33.9 K/mm3 (4.5-11.0)
[2017-05-01 03:31] LABS: INR 4.46 (0.87-1.13)
[2017-05-01] MEDS ORDERED: CYTOTEC PR ONE (03:42)
[2017-05-01 04:01] LABS: Partial Thromboplastin Time 127.2 Sec. (24.2-36.6)
[2017-05-01] MEDS ORDERED: TUCKS PAD TP PRN (05:20)
[2017-05-01] MEDS ORDERED: MORPHINE IV PRN ×2 (05:20)
[2017-05-01] MEDS ORDERED: LANSINOH TP PRN (05:20)
[2017-05-01] MEDS ORDERED: SODIUM CHLORIDE FLUSH SYRINGE 10 ML IV PRN (05:20)
[2017-05-01] MEDS ORDERED: PITOCin/NS 20 UNIT/1000ML DRIP 20 UNITS/1,000 ML BAG IV SCH (05:20)
[2017-05-01] MEDS ORDERED: ZOFRAN IV PRN (05:20)
[2017-05-01] MEDS ORDERED: TYLENOL PO PRN (05:20)
[2017-05-01] MEDS: ANCEF/NS 1 GM/50 ML 1 GM/50 ML BAG IV SCH ×2 (05:48→17:21)
[2017-05-01] MEDS: LACTATED RINGERS 1,000 ML IV SCH ×2 (06:26→18:05)
[2017-05-01 08:04] LABS: Hematocrit 25.8 % (30.3-42.9); Hemoglobin 8.1 gm/dl (10.1-14.3); Mean Corpuscular HGB Conc 32 % (30-34); Mean Corpuscular Hemoglobin 29 pg (28-32); Mean Corpuscular Volume 93 fl (79-97); Platelet Count 268 K/mm3 (140-440); Red Blood Count 2.77 M/mm3 (3.65-5.03); Red Cell Distribution Width 14.6 % (13.2-15.2)
[2017-05-01 08:10] LABS: White Blood Count 29.4 K/mm3 (4.5-11.0)
[2017-05-01 08:14] LABS: INR 1.03 (0.87-1.13)
[2017-05-01 08:15] LABS: Partial Thromboplastin Time 22.6 Sec. (24.2-36.6)
--- NOTE | 2017-05-01 09:11 | Progress Note ---
Assessment and Plan A: DOS s/p primary section, acute blood loss anemia, chronic hypertension P: Restart Aldomet. Monitor for symptoms of anemia. Subjective - Subjective Date of service: 05/01/17 Principal diagnosis: s/p primary , bilateral tubal ligation, intraoperative hemorrhage Interval history: Pt had abnormal coag results overnight. Labs redrawn and are within normal limits. Pt without complaints. Patient reports: appetite normal, no voiding normally (hurst in place ), no flatus, no bowel movement, no ambulating normally (SCDs in place ) [place]: doing well Objective - Vital Signs Latest vital signs: Vital Signs Temp Pulse Resp BP Pulse Ox 05/01/17 08:43 97.5 F L 102 H 18 161/82 05/01/17 04:48 98.3 F 105 H 20 140/80 05/01/17 03:11 18 05/01/17 02:25 104 H 18 134/77 05/01/17 02:20 104 H 18 122/55 05/01/17 02:15 97.7 F 105 H 18 04/30/17 23:51 112 H 174/94 04/30/17 23:47 87 04/30/17 23:41 87 04/30/17 23:38 167/87 04/30/17 23:36 104 H 176/94 85 04/30/17 23:35 98 H 167/87 04/30/17 23:30 95 H 174/93 04/30/17 23:23 87 04/30/17 23:20 104 H 211/104 04/30/17 23:17 56 L 83 L 04/30/17 23:12 73 84 04/30/17 23:06 66 87 04/30/17 23:05 96 H 208/109 04/30/17 23:01 86 85 04/30/17 23:00 84 04/30/17 22:55 93 04/30/17 22:51 100 H 192/109 04/30/17 22:21 105 H 149/67 04/30/17 22:11 82 L 04/30/17 22:10 107 H 97 04/30/17 22:06 100 H 168/77 04/30/17 22:05 103 H 97 04/30/17 22:00 106 H 97 04/30/17 21:55 106 H 97 04/30/17 21:52 103 H 157/79 04/30/17 21:50 106 H 96 04/30/17 21:45 105 H 97 04/30/17 21:40 107 H 94 04/30/17 21:38 103 H 94 04/30/17 21:35 101 H 151/76 94 04/30/17 21:33 112 H 94 04/30/17 21:30 104 H 93 04/30/17 21:25 102 H 94 04/30/17 21:21 97 H 145/75 04/30/17 21:20 100 H 93 04/30/17 21:19 99 H 94 04/30/17 21:15 99 H 94 04/30/17 21:13 93 H 94 04/30/17 21:10 100 H 95 04/30/17 21:07 102 H 94 04/30/17 21:05 95 H 153/70 95 04/30/17 21:02 102 H 94 04/30/17 21:00 97 H 94 04/30/17 20:55 93 H 94 04/30/17 20:52 101 H 143/94 93 04/30/17 20:50 75 84 04/30/17 20:48 20 04/30/17 20:47 41 L 85 04/30/17 20:40 105 H 96 04/30/17 20:37 96 H 94 04/30/17 20:35 100 H 154/77 95 04/30/17 20:31 107 H 94 04/30/17 20:30 98 H 96 04/30/17 20:25 99 H 96 04/30/17 20:20 98 H 159/77 96 04/30/17 20:15 94 H 97 04/30/17 20:10 95 H 96 04/30/17 20:07 102 H 168/96 04/30/17 20:05 98 H 96 04/30/17 20:00 95 H 96 04/30/17 19:55 91 H 98 04/30/17 19:52 90 150/80 04/30/17 19:50 89 97 04/30/17 19:45 95 H 96 04/30/17 19:39 94 H 96 04/30/17 19:36 96 H 129/79 04/30/17 19:35 97 H 96 04/30/17 19:30 95 H 96 04/30/17 19:25 97 H 97 04/30/17 19:20 101 H 121/75 97 04/30/17 19:15 109 H 97 04/30/17 19:10 97 H 97 04/30/17 19:05 96 H 132/70 97 04/30/17 19:00 92 H 97 04/30/17 18:55 108 H 97 04/30/17 18:50 109 H 148/77 97 04/30/17 18:45 81 97 04/30/17 18:40 103 H 97 04/30/17 18:37 103 H 94 04/30/17 18:35 95 H 97 04/30/17 18:30 107 H 97 04/30/17 18:25 90 97 04/30/17 18:20 91 H 97 04/30/17 18:15 100 H 96 04/30/17 18:10 92 H 96 04/30/17 18:05 91 H 160/81 96 04/30/17 18:00 98.3 F 66 16 145/88 96 04/30/17 17:55 98 H 96 04/30/17 17:51 96 H 146/73 04/30/17 17:50 97 H 96 04/30/17 17:45 96 H 96 04/30/17 17:40 88 96 04/30/17 17:36 83 141/71 04/30/17 17:35 88 96 04/30/17 17:30 97 H 96 04/30/17 17:25 90 96 04/30/17 17:22 89 149/70 04/30/17 17:20 90 96 04/30/17 17:14 76 96 04/30/17 17:10 96 H 96 04/30/17 17:06 87 142/68 04/30/17 17:05 96 H 96 04/30/17 17:00 82 96 04/30/17 16:55 98.5 F 88 16 136/88 96 04/30/17 16:50 83 132/69 96 17 16:45 88 96 17 16:40 89 96 17 16:37 91 H 144/70 17 16:35 85 97 04/30/17 16:30 88 96 17 16:26 78 163/78 04/30/17 16:25 82 95 04/30/17 16:06 78 155/69 04/30/17 15:51 85 185/82 04/30/17 15:36 89 147/98 04/30/17 15:22 78 156/89 04/30/17 15:06 87 159/82 04/30/17 15:02 87 98 04/30/17 14:57 86 98 04/30/17 14:51 87 169/81 97 04/30/17 14:50 88 157/75 04/30/17 14:46 91 H 97 04/30/17 14:41 87 97 04/30/17 14:37 91 H 97 04/30/17 14:36 90 157/75 04/30/17 14:31 88 98 04/30/17 14:27 86 98 04/30/17 14:22 92 H 180/87 99 04/30/17 14:17 98 H 97 04/30/17 14:12 77 97 04/30/17 14:06 93 H 98 04/30/17 14:05 94 H 149/86 04/30/17 14:02 88 97 04/30/17 13:57 88 97 04/30/17 13:51 94 H 97 04/30/17 13:50 95 H 161/81 04/30/17 13:47 89 96 04/30/17 13:41 82 97 04/30/17 13:37 86 97 04/30/17 13:36 82 152/75 04/30/17 13:32 86 97 04/30/17 13:27 85 97 04/30/17 13:21 84 159/81 97 04/30/17 13:16 89 97 04/30/17 13:11 86 98 04/30/17 13:07 88 172/89 04/30/17 13:06 89 98 04/30/17 13:01 87 99 04/30/17 12:56 92 H 99 04/30/17 12:51 88 171/90 99 04/30/17 12:46 104 H 98 04/30/17 12:42 100 H 99 04/30/17 12:37 98.5 F 107 H 16 133/85 99 04/30/17 12:35 98 H 137/73 04/30/17 12:31 107 H 99 04/30/17 12:26 96 H 99 04/30/17 12:22 103 H 133/85 04/30/17 12:21 96 H 98 04/30/17 12:16 96 H 98 04/30/17 12:11 95 H 98 04/30/17 12:06 88 98 04/30/17 12:05 93 H 135/78 04/30/17 12:01 87 98 04/30/17 11:56 93 H 98 04/30/17 11:51 92 H 98 04/30/17 11:50 87 136/74 04/30/17 11:46 87 98 04/30/17 11:41 82 98 04/30/17 11:37 85 137/75 04/30/17 11:36 84 98 04/30/17 11:31 94 H 98 04/30/17 11:26 89 99 04/30/17 11:21 90 142/75 98 04/30/17 11:16 94 H 99 04/30/17 11:11 99 H 99 04/30/17 11:06 96 H 146/74 99 04/30/17 11:01 105 H 99 04/30/17 10:56 95 H 98 04/30/17 10:51 92 H 140/73 98 04/30/17 10:46 94 H 98 04/30/17 10:41 91 H 98 04/30/17 10:36 92 H 161/81 98 04/30/17 10:33 97 H 155/85 04/30/17 10:31 89 98 04/30/17 10:26 87 98 04/30/17 10:22 90 160/79 04/30/17 10:21 92 H 98 04/30/17 10:16 92 H 98 04/30/17 10:11 94 H 98 04/30/17 10:06 99 H 98 04/30/17 10:04 102 H 152/74 04/30/17 10:02 97 H 155/78 04/30/17 10:01 103 H 99 04/30/17 10:00 109 H 145/74 04/30/17 09:58 97 H 149/75 04/30/17 09:56 105 H 145/69 99 04/30/17 09:54 94 H 171/93 04/30/17 09:52 93 H 183/83 04/30/17 09:51 95 H 99 04/30/17 09:50 88 181/81 04/30/17 09:48 92 H 196/84 04/30/17 09:46 98 H 99 04/30/17 09:41 98 H 197/88 99 Intake and Output 04/30/17 05/01/17 05/01/17 22:59 06:59 14:59 Output Total 600 200 400 Balance -600 -200 -400 Output: Urine 600 200 400 Indwelling Catheter 400 Uretheral ([place]urst) 200 Void 600 Other: Total, Output Amount 600 400 Estimated Blood Loss 1,600 - Exam Breasts: Present: deferred Cardiovascular: Present: Regular rate Lungs: Present: Clear to auscultation Abdomen: Present: soft (obese, ), distention (moderate ) Uterus: Present: fundal height at umbilicus Incision: Present: normal, dressed - Labs Labs: Abnormal lab results 04/29/17 04/30/17 04/30/17 Range/Units 00:00 14:16 16:30 WBC (4.5-11.0) K/mm3 RBC (3.65-5.03) M/mm3 Hgb (10.1-14.3) gm/dl Hct (30.3-42.9) % PT (12.2-14.9) Sec. INR (0.87-1.13) APTT (24.2-36.6) Sec. Creatinine 0.5 L (0.7-1.2) mg/dL Lactate Dehydrogenase 194 H (91-180) units/L Urine WBC (Auto) 7.0 H (0.0-6.0) /HPF Crossmatch See Detail 05/01/17 05/01/17 05/01/17 Range/Units 02:49 02:49 07:36 WBC 33.9 H (4.5-11.0) K/mm3 RBC 3.28 L (3.65-5.03) M/mm3 Hgb 9.8 L (10.1-14.3) gm/dl Hct (30.3-42.9) % PT 44.9 H (12.2-14.9) Sec. INR 4.46 H (0.87-1.13) APTT 127.2 H* 22.6 L (24.2-36.6) Sec. Creatinine (0.7-1.2) mg/dL Lactate Dehydrogenase (91-180) units/L Urine WBC (Auto) (0.0-6.0) /HPF Crossmatch 05/01/17 Range/Units 07:36 WBC 29.4 H (4.5-11.0) K/mm3 RBC 2.77 L (3.65-5.03) M/mm3 Hgb 8.1 L (10.1-14.3) gm/dl Hct 25.8 L (30.3-42.9) % PT (12.2-14.9) Sec. INR (0.87-1.13) APTT (24.2-36.6) Sec. Creatinine (0.7-1.2) mg/dL Lactate Dehydrogenase (91-180) units/L Urine WBC (Auto) (0.0-6.0) /HPF Crossmatch
[2017-05-01 09:51] LABS: Basophils % (Manual) 0 % (0.0-1.8); Blastocytes % (Manual) 0 %; Eosinophils % (Manual) 0 % (0.0-4.3)
[2017-05-01 09:53] LABS: Diff Status Complete; Macrocytosis 1+; Platelet Estimate Consistent w Auto; Polychromasia Rare; Tear Drop Cells Rare
[2017-05-01] MEDS: ALDOMET PO SCH (10:29)
[2017-05-01] MEDS: PRENATAL VITAMIN PO SCH (10:30)
[2017-05-01] MEDS: FEOSOL PO SCH ×2 (10:30→22:04)
[2017-05-01] MEDS ORDERED: NEO SYNEPHRINE/NS Syringe(OR USE) IV ONE (13:30)
[2017-05-01] MEDS: PERCOCET 5/325 PO PRN ×2 (17:57→22:05)
[2017-05-01] MEDS ORDERED: ANCEF/NS 1 GM/50 ML 1 GM/50 ML BAG IV SCH (18:00)
[2017-05-01] MEDS ORDERED: PEPCID IV ONE (22:06)
[2017-05-01] MEDS: MYLICON PO PRN (22:07)
[2017-05-02] MEDS ORDERED: M-M-R II VACCINE SUB-Q ONE (02:18)
[2017-05-02] MEDS: MILK OF MAGNESIA PO SCH (05:25)
[2017-05-02] MEDS ORDERED: BOOSTRIX IM ONE (06:00)
[2017-05-02] MEDS: PERCOCET 5/325 PO PRN ×4 (07:16→21:47)
[2017-05-02] MEDS: PRENATAL VITAMIN PO SCH (10:36)
[2017-05-02] MEDS: MYLICON PO PRN (10:36)
[2017-05-02] MEDS: ALDOMET PO SCH (10:36)
[2017-05-02] MEDS: FEOSOL PO SCH ×2 (10:36→21:47)
--- NOTE | 2017-05-02 10:45 | Progress Note ---
Subjective Date of service: 05/02/17 Principal diagnosis: s/p primary , bilateral tubal ligation, intraoperative hemorrhage Interval history: 1st POD after Patient is in the bed, comfortable. pain is well controlled with pain meds. Ambulated well. No residual neurological deficit. No pruritus. No anesthesia complications Objective - Constitutional Vitals: Vital Signs - 12hr 05/01/17 05/02/17 05/02/17 23:45 09:00 10:36 Temperature 98.2 F Pulse Rate 90 114 H Respiratory 18 20 Rate Blood Pressure 146/68 123/64 123/65 - Labs CBC & Chem 7: 05/01/17 07:36 04/30/17 14:16 Labs: Abnormal lab results 04/29/17 Range/Units 00:00 Crossmatch See Detail
--- NOTE | 2017-05-02 12:21 | Progress Note ---
Assessment and Plan A/P POD # 1 s/p csec primary, uterine atony , intraop hemorrhage VSS BP slighlttly elevated but last BP wnl 120/70s close observation of BP - hx of chronic htn A+ no rhogam indicated H/H 9.8/30.3---8.1/25.8 on iron bid continue routine post op Subjective - Subjective Date of service: 05/02/17 Principal diagnosis: s/p primary , bilateral tubal ligation, intraoperative hemorrhage Patient reports: appetite normal, voiding normally, pain well controlled, ambulating normally [place]: doing well Objective - Vital Signs Latest vital signs: Vital Signs Temp Pulse Resp BP 05/02/17 10:36 123/65 05/02/17 09:00 98.2 F 114 H 20 123/64 05/01/17 23:45 90 18 146/68 05/01/17 22:05 18 05/01/17 20:25 98.5 F 112 H 18 172/78 05/01/17 17:00 98.4 F 100 H 18 140/86 05/01/17 13:00 98 F 89 18 148/80 Intake and Output 05/01/17 05/02/17 05/02/17 22:59 06:59 14:59 Intake Total 440 200 Output Total 400 600 Balance 40 -400 Intake: Oral 440 200 Output: Urine 400 600 Indwelling Catheter 400 Void 400 200 Other: Total, Intake Amount 200 200 Total, Output Amount 400 400 # Voids Void 1 - Exam Breasts: Present: normal Cardiovascular: Present: Regular rate, Normal S1 Lungs: Present: Clear to auscultation, Normal air movement Abdomen: Present: normal appearance, soft, distention Vulva: both: normal Uterus: Present: normal, firm, bogginess, tenderness, fundal height below umbilicus Extremities: Present: normal Deep Tendon Reflex Grade: Normal +2 Incision: Present: normal, dry, dressed - Labs Labs: Abnormal lab results 04/29/17 Range/Units 00:00 Crossmatch See Detail
[2017-05-03] MEDS: PERCOCET 5/325 PO PRN ×6 (02:24→23:08)
[2017-05-03] MEDS: MILK OF MAGNESIA PO SCH ×4 (04:10→23:08)
--- NOTE | 2017-05-03 08:53 | Progress Note ---
Assessment and Plan O: VSS AF PP H/H: 8.1/25.8 S/P transfusion for uterine atony A: Stable POD #2 Permanent Contraception Anemia Abdominal Distention P: Prune Juice Gas X Ambulate May D/C home if more passage of gas Subjective - Subjective Date of service: 05/03/17 Principal diagnosis: s/p primary , bilateral tubal ligation, intraoperative hemorrhage Interval history: 46 yo first trimester U/S EDC 05/14/17 @ 38 weeks gestation presented last night to unit with c/o SROM at 2100 clear fluid. Denies VB, reports good FM. First trimester entry into care at 8 weeks gestation. course complicated by Chronic hypertension with Aldomet 250mg QD and APA comang't. Limited care in first trimester, missed 10 weeks of care. Limited anatomy scan with NL repeat U/S. Also had elevated GCT of 179, declinced 3hr GTT , sent for hgA1C, fasting and 2hr PP glucose, results not currently available at time of entry. Also treated for anemia with iron BID and Trichomonas with Rx 04/2017. She is GBS negative. Patient reports: appetite normal, voiding normally, pain well controlled, flatus , ambulating normally, other [place]: doing well, bottle feeding Objective - Vital Signs Latest vital signs: Vital Signs Temp Pulse Resp BP 05/03/17 01:10 98.3 F 98 H 20 141/79 05/02/17 16:40 98.5 F 108 H 20 128/68 05/02/17 10:36 123/65 05/02/17 09:00 98.2 F 114 H 20 123/64 Intake and Output 05/02/17 05/03/17 05/03/17 22:59 06:59 14:59 Intake Total 240 240 Balance 240 240 Intake: Oral 240 240 Other: Total, Intake Amount 240 240 # Voids Void 1 - Exam Breasts: Present: deferred Lungs: Present: Normal air movement Abdomen: Present: normal appearance, distention (moderate) Vulva: both: normal Uterus: Present: normal, firm, fundal height below umbilicus Extremities: Present: normal Incision: Present: normal, dry, intact - Labs Labs: Abnormal lab results 04/29/17 Range/Units 00:00 Crossmatch See Detail
[2017-05-03] MEDS ORDERED: PROCTOFOAM-HC PR PRN (08:55)
--- NOTE | 2017-05-03 09:08 | Discharge Summary ---
Providers - Providers Date of Admission: 04/29/17 22:46 Date of discharge: 05/04/17 Attending physician: SAI WELCH MD 05/01/17 05:20 Consult to [employer] [CONS] Routine Reason For Exam: Primary care physician: SAI WELCH MD Hospitalization Reason for admission: rupture of membranes, IUP at term Delivery: Procedure: primary low transverse Episiotomy: none Laceration: none Incision: normal, dry, intact Other procedures: none complications: uterine atony, other (blood transfusion) Discharge diagnosis: IUP at term delivered baby: female Condition at discharge: Good Disposition: DC-01 TO HOME OR SELFCARE Plan - Discharge Medications Prescriptions: Docusate Sodium [Colace] 100 mg PO BID PRN #60 capsule PRN Reason: Constipation Ferrous Sulfate [Feosol 325 MG tab] 325 mg PO TID #90 tablet Ibuprofen [Motrin] 800 mg PO Q8HR PRN #30 tablet PRN Reason: Pain Methyldopa [Aldomet] 250 mg PO BID #60 tablet oxyCODONE /ACETAMINOPHEN [Percocet 5/325] 1 tab PO Q6HR PRN #30 tablet PRN Reason: Pain - Provider Discharge Summary Activity: routine, no sex for 6 weeks, no heavy lifting 4 weeks, no strenuous exercise Diet: routine Instructions: routine Additional instructions: [] Smoking cessation referral if applicable(refer to patient education folder for contact #) [] Refer to [facility] Booklet Call your doctor immediately for: * Fever > 100.5 * Heavy vaginal bleeding ( >1 pad per hour) * Severe persistent headache * Shortness of breath * Reddened, hot, painful area to leg or breast * Drainage or odor from incision. * Keep incision clean and dry at all times and follow doctor's instructions regarding bathing/showering - Follow up plan Follow up: SAI WELCH MD [Primary Care Provider] - 7 Days (RTO for staple removal one week. Bring staple removal kit)
[2017-05-03] MEDS: PRENATAL VITAMIN PO SCH (10:37)
[2017-05-03] MEDS: ALDOMET PO SCH (10:37)
[2017-05-03] MEDS: FEOSOL PO SCH ×2 (10:37→21:35)
[2017-05-03] MEDS: COLACE PO SCH ×2 (10:37→21:35)
[2017-05-03] MEDS: MYLICON PO PRN ×2 (14:59→21:35)
[2017-05-03] MEDS ORDERED: CITRATE OF MAGNESIA PO STA (17:52)
[2017-05-03] MEDS ORDERED: FLEET PR ONE (22:00)
[2017-05-04] MEDS: MYLICON PO PRN ×2 (03:56→10:33)
[2017-05-04] MEDS: PERCOCET 5/325 PO PRN ×3 (03:56→14:27)
[2017-05-04] MEDS: MILK OF MAGNESIA PO SCH (05:15)
--- NOTE | 2017-05-04 08:32 | Event Note ---
Date: 05/04/17 Pt with ileus this morning with severely distended abdomen. Pt reveals a h/o constipation, hemorrhoids, bloating, GERD and IBS this morning during her interview. Clear liquid diet. Magnesium citrate. Monitor closely.
[2017-05-04] MEDS ORDERED: PROTONIX PO SCH (10:00)
[2017-05-04] MEDS: ALDOMET PO SCH (10:22)
[2017-05-04] MEDS: COLACE PO SCH (10:22)
[2017-05-04] MEDS ORDERED: CITRATE OF MAGNESIA PO ONE (10:30)
--- NOTE | 2017-05-04 13:04 | Event Note ---
Date: 05/04/17 Called by pt's RN because she wants to go home because she had two large bowel movements. Pt discharged home with follow up in one week.
[2017-05-04] MEDS: FEOSOL PO SCH (13:31)
[2017-05-04] MEDS: PRENATAL VITAMIN PO SCH (13:31)
[2017-05-04 15:56] VITALS: BP 142/74
== END 2017-05-04 16:20 | disposition home or self-care (01) | DRG 765 ==
LOC: TRG 22:16 → LD 22:46 → APU 05-01 00:14 → OB 05-01 05:17
PROVIDERS: ADMIT Obstetrics & Gynecology; ATTEND Obstetrics & Gynecology
PROC: 10D00Z1 Extraction of Products of Conception, Low, Open Approach (ICD-10-PCS; principal; 2017-05-01)
PROC: 0UB70ZZ Excision of Bilateral Fallopian Tubes, Open Approach (ICD-10-PCS; 2017-05-01)
DX: O10.92 Unspecified pre-existing hypertension complicating childbirth (principal); D62 Acute posthemorrhagic anemia; K56.7 Ileus, unspecified; O99.63 Diseases of the digestive system complicating the puerperium; O34.13 Maternal care for benign tumor of corpus uteri, third trimester; O99.02 Anemia complicating childbirth; K21.9 Gastro-esophageal reflux disease without esophagitis; D25.9 Leiomyoma of uterus, unspecified; O62.2 Other uterine inertia; O42.92 Full-term premature rupture of membranes, unspecified as to length of time between rupture and onset of labor; Z3A.38 38 weeks gestation of pregnancy; Z37.0 Single live birth; Z30.2 Encounter for sterilization
CPT/HCPCS: 36415; 81001; 82565; 83615; 84450; 84460; 84550; 85007; 85014; 85018; 85025; 85027; 85610; 85730; 86592; 86850; 86900; 86901; 86920; 88302; 88307; J0290; J0360; J0690; J1170; J2250; J2270; J2370; J2405; J2590; J2765; J3010; J7120